=== PATIENT | female | born 2000 | race Caucasian/White ===

== ENCOUNTER 2022-09-15 16:06 | Outpatient (CLI) | payer BC ==
[2022-09-15 17:39] LABS: BHCG - Serum Negative (NEGATIVE); Pregs Control Background? CLEAR/WHITE (CLR/WHITE); Pregs Control Bar Appear? YES (CONTROL BAR)
== END 2022-09-15 16:07 | disposition home or self-care (01) ==
LOC: CSHLAB 16:06
PROVIDERS: ATTEND Surgery
DX: Z01.818 Encounter for other preprocedural examination (principal); K21.9 Gastro-esophageal reflux disease without esophagitis
CPT/HCPCS: 84703; 93005; 93010

== ENCOUNTER 2022-09-16 05:49 | Day surgery (SDC) | payer BC ==
[2022-09-15 09:55] VITALS: BMI 44.1
[2022-09-16] MEDS ORDERED: PROPOFOL 40 ML ONE (07:20)
[2022-09-16] MEDS ORDERED: Fentanyl 100 MCG/2 ML VIAL ONE (07:20)
[2022-09-16] MEDS ORDERED: Lidocaine 1% PF 5 ML VIAL ONE (07:20)
== END 2022-09-16 08:35 | disposition home or self-care (01) ==
LOC: CSHSDC 05:49
PROVIDERS: ATTEND Surgery
PROC: 0DB78ZX Excision of Stomach, Pylorus, Via Natural or Artificial Opening Endoscopic, Diagnostic (ICD-10-PCS; principal; 2022-09-16)
DX: K29.70 Gastritis, unspecified, without bleeding (principal); K21.9 Gastro-esophageal reflux disease without esophagitis; K44.9 Diaphragmatic hernia without obstruction or gangrene; E66.01 Morbid (severe) obesity due to excess calories; Z68.42 Body mass index [BMI] 45.0-49.9, adult; Q79.60 Ehlers-Danlos syndrome, unspecified
CPT/HCPCS: 88305; J2704; J3010